=== PATIENT | female | born 1975 | race Caucasian/White ===

== ENCOUNTER → 2016-06-17 | Outpatient (CLI) | payer BC ==
[~2016-06-17] MED LIST: CALNTAB; METO25 PO; METO25TA3 PO; OXYC1TAB63 PO
== END ==
LOC: HPND 10:26
PROVIDERS: ATTEND Obstetrics & Gynecology
DX: O09.522 Supervision of elderly multigravida, second trimester (principal); I47.1 Supraventricular tachycardia; Z3A.18 18 weeks gestation of pregnancy
CPT/HCPCS: 76811

== ENCOUNTER 2016-07-26 05:51 | Observation (INO) | payer BC ==
[~2016-07-26] VITALS: Ht 165.1 cm; Wt 66.7 kg
[~2016-07-26 05:51] MED LIST changes: -CALNTAB; -METO25TA3 PO; -OXYC1TAB63 PO
[2016-07-26 06:30] VITALS: PULSE 86
[2016-07-26 06:35] VITALS: PULSE 99
[2016-07-26 08:54] VITALS: BP 87/53; PULSE 96; RESP 18
[2016-07-26 08:55] VITALS: PULSE 96; O2SAT 100
[2016-07-26 09:00] VITALS: TEMP 98.4
[2016-07-26] MEDS ORDERED: CALNTAB (09:23)
[2016-07-26 09:35] VITALS: BP 93/56; PULSE 91; RESP 18
--- NOTE | 2016-07-26 09:39 | MH ---
cc: ANTONY MORALES M.D. DATE OF ADMISSION: 07/26/2016 ADMITTING DIAGNOSES 1. 23 weeks. 2. Recurrent SVT. 3. Advanced maternal age. 4. Previous . HISTORY OF PRESENT ILLNESS The patient is a 41-year-old white female para 0-1-0-1, LMP of 02/10/16, EDC of 11/16/16. She has a history of SVT which first occurred in her first in 2010. She had [facility] evaluation in 2011 and has been treated with intermittent Metoprolol. She had an episode at 10 weeks in this that required IV Adenosine. She awoke about 2:00 a.m. today with a severely rapid heart rate, went to the ED at [facility] with a tracing of 240 beats a minute. She received three doses of IV Adenosine, had some brief hypotension and then coughed and converted to sinus rhythm. The ED and script writer recommended observation for 23 hours and she was transferred to vt for care. PAST MEDICAL HISTORY/PREVIOUS SURGERY 1. in 2011 for breech. 2. Breast augmentation 2010. 3. T-tubes in childhood. 4. Cryo for SHANNEN I 2000. MEDICATIONS Vitamins and intermittent Metoprolol. ALLERGIES PENICILLIN AND SULFA. TRANSFUSIONS None. SOCIAL HISTORY . She is a sourcing intern. Alcohol, tobacco and drugs are none. FAMILY HISTORY Noncontributory. PHYSICAL EXAMINATION GENERAL: A well-nourished, well-developed, white female. VITAL SIGNS: Vital signs stable. HEART: Sinus rhythm. HEENT: Normal. CHEST: Clear. HEART: Regular rate. ABDOMEN: Abdomen is gravid at 33 weeks. Cervix normal. PELVIC: Deferred. ASSESSMENT As above. PLAN We will have cardiology consultation and discharge home when stable. MD ANGEL LUIS Rivera/IMANI /8:34 AM /9:13 AM
[2016-07-26] MEDS ORDERED: LACTATED RINGER'S 1000 ML INJ 1,000 ML IV ONE (09:45)
--- NOTE | 2016-07-26 10:49 | MB ---
cc: YOHANA STINSON MD DATE OF CONSULTATION: 07/26/2016 REASON FOR CONSULTATION SVT in HISTORY OF PRESENT ILLNESS The patient is a very pleasant 41-year-old woman who sees my partner Dr. Matta for a history of paroxysmal supraventricular tachycardia. The patient is currently 24 weeks and had an episode of very fast supraventricular tachycardia to 240 beats per minute for which she was given several rounds of adenosine in the emergency department which successfully converted her to sinus rhythm. She had been intermittently taking metoprolol as needed but it turns out she was really taking this for symptomatic PVCs as her SVT would come on without warning so a p.r.n. medication was not particularly feasible. Vagal maneuvers had not been particularly helpful for her in the past though she is quite savvy and has done her research on SVT. Currently she has been admitted for observation but maintains sinus rhythm and is completely asymptomatic and hoping to be discharged home. She denies any other symptoms such as chest pain, shortness of breath, lightheadedness, dizziness or syncope. Indeed when she is in her SVT she is still able to function normally despite the very high heart rates. CURRENT MEDICATIONS 1. Vitamins. 2. P.r.n. Metoprolol tartrate. ALLERGIES PENICILLIN, SULFA, CODEINE. PHYSICAL EXAMINATION GENERAL: A very pleasant well-appearing woman in no distress. NECK: No JVD. LUNGS: Clear to auscultation bilaterally. CARDIOVASCULAR: Regular rate and rhythm. No murmurs appreciated. ABDOMEN: Benign. EXTREMITIES: No edema. LABORATORY DATA No labs have been drawn here. EKG initially showed an SVT at [address] changes. Subsequent EKGs have shown sinus rhythm with bigeminal PVCs and then sinus rhythm. The ST changes resolved upon converting to sinus rhythm. IMPRESSION Recurrent SVT. The patient with a history of recurrent SVT continues to have intermittent episodes. I believe it is worthwhile at this point to change her p.r.n. Metoprolol to standing Metoprolol tartrate 25 mg b.i.d. Her pressure is on the low side at baseline so she will have to work particularly hard to stay hydrated at all times. Electrophysiologic options are somewhat limited given that she is but this seems a reasonable place to start. I did discuss the risks of medication at length with the patient versus the risks of not treating, and we both agree that this seems the most prudent course given her markedly fast SVT which required hospitalization. Otherwise, she is asymptomatic and back in a sinus rhythm so she can discharged home and she can followup with her primary bakery manager Dr. Matta next week. Thank you again for the opportunity to participate this patient's care. MD RAMYA De León/IMANI /8:50 AM /10:11 AM
== END 2016-07-26 09:58 | disposition home or self-care (01) ==
LOC: HOBED 05:51 → H2EA 06:37
PROVIDERS: ADMIT Obstetrics & Gynecology; ATTEND Obstetrics & Gynecology
DX: O99.412 Diseases of the circulatory system complicating pregnancy, second trimester (principal); I47.1 Supraventricular tachycardia; O09.522 Supervision of elderly multigravida, second trimester; Z3A.24 24 weeks gestation of pregnancy
CPT/HCPCS: 99285; G0378; J7120

== ENCOUNTER → 2016-08-01 | Outpatient (CLI) | payer BC ==
[~2016-08-01] MED LIST changes: +CALNTAB; +METO25TA3 PO; +OXYC1TAB63 PO
== END ==
LOC: HPND 09:50
PROVIDERS: ATTEND Obstetrics & Gynecology
DX: O10.912 Unspecified pre-existing hypertension complicating pregnancy, second trimester (principal); O09.522 Supervision of elderly multigravida, second trimester; Z3A.00 Weeks of gestation of pregnancy not specified
CPT/HCPCS: 76816; 76817

== ENCOUNTER → 2016-08-05 | Outpatient (CLI) | payer BC | LOC: HPND 08:04 | PROVIDERS: ATTEND Obstetrics & Gynecology | DX: O09.522 Supervision of elderly multigravida, second trimester (principal); O35.1XX0 Maternal care for (suspected) chromosomal abnormality in fetus, not applicable or unspecified; Z3A.25 25 weeks gestation of pregnancy | CPT/HCPCS: 76815 ==

== ENCOUNTER → 2016-08-12 | Outpatient (CLI) | payer BC | LOC: HPND 08:32 | PROVIDERS: ATTEND Obstetrics & Gynecology | DX: O35.1XX0 Maternal care for (suspected) chromosomal abnormality in fetus, not applicable or unspecified (principal); O09.522 Supervision of elderly multigravida, second trimester | CPT/HCPCS: 76815 ==

== ENCOUNTER 2016-09-20 09:33 | Emergency (ER) | payer BC ==
[~2016-09-20] VITALS: Ht 165.1 cm; Wt 75.0 kg
[~2016-09-20 09:33] MED LIST changes: -METO25TA3 PO; -OXYC1TAB63 PO
[2016-09-20 09:38] VITALS: BP 107/71; PULSE 99; RESP 18; TEMP 98; O2SAT 99
[2016-09-20] MEDS ORDERED: METO25TA3 PO (09:50)
--- NOTE | 2016-09-20 10:07 | PD ---
HPI Chief Complaint: Cardiac Complaint Time Seen by Provider: 09:42 Travel History International Travel<30 days: No Contact w/Intl Traveler<30days: No Traveled to known affect area: No History of Present Illness HPI 41-year-old female complains of palpitation on the dizziness and shortness of breath. Patient has history of SVT and frequent PVCs in the past. Patient is on metoprolol 25 mg twice a day for that. Patient has been seen by cull grader Dr. Ponce and [facility]. Patient started having palpitation and shortness of breath and dizziness this morning. Her heart rate was in 180 range this morning. EMS was called. Patient was found to have tachycardia rate about 170s. Patient was transported to ED for evaluation. Upon arrival patient's feeling much better. Patient states that her heart rate slowing down now. Patient is 32 weeks . Patient denies any abdominal pain, vaginal discharge or bleeding. Patient states that the fetus is active. PFSH Past Medical History Cardiovascular Problems: Yes Diminished Hearing: No Tetanus Vaccination: Unknown Influenza Vaccination: No ?: LMP: 02/13/16 Past Surgical History Section: Yes (x1) Other Surgery: Yes (breast augmentation) Social History Alcohol Use: No Tobacco Use: No Substance Use: No Allergies-Medications (Allergen,Severity, Reaction): Coded Allergies: Codeine (Verified Allergy, Severe, 07/26/16) Penicillin (Verified Allergy, Severe, 07/26/16) Sulfa (Verified Allergy, Severe, 07/26/16) Reported Meds & Prescriptions Reported Meds & Active Scripts Active Reported Metoprolol Tartrate 25 Mg Tab 25 Mg PO BID Calna ( Vitamin) 1 Tab Tab Review of Systems General / Constitutional: No: Fever Eyes: No: Visual changes HENT: No: Headaches Cardiovascular: Positive: Tachycardia, No: Chest Pain or Discomfort Respiratory: No: Shortness of Breath Gastrointestinal: No: Abdominal Pain Genitourinary: No: Dysuria Musculoskeletal: No: Pain Skin: No Rash Neurologic: No: Weakness Psychiatric: No: Depression Endocrine: No: Polydipsia Hematologic/Lymphatic: No: Easy Bruising Physical Exam Narrative GENERAL: Well-nourished, well-developed patient. SKIN: Focused skin assessment warm/dry. HEAD: Normocephalic. EYES: No scleral icterus. No injection or drainage. NECK: Supple, trachea midline. No JVD or lymphadenopathy. CARDIOVASCULAR: Irregular rate and rhythm without murmurs, gallops, or rubs. RESPIRATORY: Breath sounds equal bilaterally. No accessory muscle use. GASTROINTESTINAL: Abdomen soft, non-tender, nondistended. MUSCULOSKELETAL: No cyanosis, or edema. BACK: Nontender without obvious deformity. No CVA tenderness. Neurologic exam normal. Data Data Last Documented VS Vital Signs Date Time Temp Pulse Resp B/P Pulse Ox O2 Delivery O2 Flow Rate FiO2 09/20/16 09:38 98.0 99 18 107/71 99 09/20/16 09:35 Room Air Orders Electrocardiogram (09/20/16 ) MDM Medical Decision Making Medical Screen Exam Complete: Yes Emergency Medical Condition: Yes Interpretation(s) 10:05 AM. EKG showed bigeminy. personnel monitor shows frequent PVCs. Differential Diagnosis Differential diagnosis including SVT, frequent PVCs, atrial fibrillation, atrial flutter, PACs. Narrative Course 41-year-old female, 32 weeks , with history SVT and frequent PVCs. Patient's been seen by cull grader and [facility] and on metoprolol 25 mg twice a day. Patient had the breakthrough SVT this morning. Patient now on bigeminy which is normal for her after SVT breakthrough. Patient's feeling comfortable now. Patient wants to go home and follow up with her cull grader. Procedures Procedure Narrative Emergency Department Pelvic ultrasound was performed with patient consent. The curvilinear probe was used in the transverse and sagittal views within the suprapubic region revealing single intrauterine . heart rate was 140. Fetus active Diagnosis Primary Impression: SVT (supraventricular tachycardia) Patient Instructions: General Instructions Additional Instructions: Continue with metoprolol as directed. Follow-up with cull grader. Return if worse. Med/Other Pt SpecificInfo: No Change to Meds Disposition: 01 DISCHARGE HOME Condition: Stable Harley Portillo MD Sep 20, 2016 10:07
--- NOTE | 2016-09-21 10:23 | EKG ---
Date Performed: 09/20/2016 Time Performed: 09:42:59 PTAGE: 41 years EKG: Sinus rhythm WITH FREQUENT VENTRICULAR PREMATURE COMPLEXES IN A BIGEMINAL PATTERN ABNORMAL RHYTHM ECG PREVIOUS TRACING : 03/25/2016 16.00 Compared to previous tracing, there are now frequent PVCs i n a bigeminal pattern. Previous EKG showed normal sinus rhythm. DOCTOR: Belkys Parker Interpretating Date/Time 09/21/2016 10:23:15
== END 2016-09-20 10:33 | disposition home or self-care (01) ==
LOC: NEPC 09:33
DX: O26.93 Pregnancy related conditions, unspecified, third trimester (principal); I47.1 Supraventricular tachycardia; I49.3 Ventricular premature depolarization; Z3A.32 32 weeks gestation of pregnancy; R06.02 Shortness of breath; R42 Dizziness and giddiness
CPT/HCPCS: 93005

== ENCOUNTER → 2016-09-23 | Outpatient (CLI) | payer BC ==
[~2016-09-23] MED LIST changes: -METO25 PO; +METO25TA3 PO; +OXYC1TAB63 PO
== END ==
LOC: HPND 08:44
PROVIDERS: ATTEND Obstetrics & Gynecology
DX: O09.522 Supervision of elderly multigravida, second trimester (principal)
CPT/HCPCS: 76816

== ENCOUNTER 2016-10-11 21:01 | Emergency (ER) | payer BC ==
[~2016-10-11] VITALS: Ht 167.6 cm; Wt 72.7 kg
[~2016-10-11 21:01] MED LIST changes: -OXYC1TAB63 PO
[2016-10-11 21:08] VITALS: BP 90/52; PULSE 228; RESP 26; O2SAT 100
[2016-10-11] MEDS ORDERED: ADENOSINE IV SOLN 3 MG/ML 2 ML VIAL ONE (21:11)
[2016-10-11 21:14] VITALS: BP 111/73; PULSE 97; RESP 26; O2SAT 100
[2016-10-11] MEDS ORDERED: SODIUM CHLOR 0.9% 1000 ML INJ 1,000 ML IV ONE (21:30)
[2016-10-11] MEDS ORDERED: ADENOSINE IV SOLN 3 MG/ML 2 ML VIAL IV PUSH ONE (21:30)
[2016-10-11 21:42] LABS: AUTOMATED NEUTROPHIL # 4.9 TH/MM3 (1.8-7.7); BASOPHIL % 0.2 % (0.0-2.0); EOSINOPHIL % 0.5 % (0.0-4.0); HEMATOCRIT 37.1 % (35.0-46.0); HEMO FLAGS DIFF FINAL; LYMPH % 25.3 % (9.0-44.0); LYMPHOCYTE # 1.8 TH/MM3 (1.0-4.8); MEAN CELL VOLUME 83.2 FL (80.0-100.0); MEAN CORPUSCULAR HGB CONC 33.7 % (32.0-36.0); MONO % 5.1 % (0.0-8.0); NEUT % 68.9 % (16.0-70.0); PLATELET COUNT 287 TH/MM3 (150-450); RED BLOOD COUNT 4.46 MIL/MM3 (4.00-5.30); RED CELL DISTRIBUTION WIDTH 18.5 % (11.6-17.2); WHITE BLOOD COUNT 7.1 TH/MM3 (4.0-11.0)
[2016-10-11 21:55] VITALS: BP 91/58; PULSE 91; RESP 20; O2SAT 99
[2016-10-11 21:55] LABS: INTERNATIONAL NORMALIZED RATIO 0.9 RATIO; PROTHROMBIN TIME - PATIENT 9.9 SEC (9.8-11.6)
--- NOTE | 2016-10-11 21:56 | PD ---
HPI Chief Complaint: Chest Pain Time Seen by Provider: 21:17 Travel History International Travel<30 days: No Contact w/Intl Traveler<30days: No Traveled to known affect area: No History of Present Illness HPI 41-year-old female presents to the emergency department by private transportation for complaint of increased heart rate with history of SVT and presently 35 weeks . Patient is 2 para 1 AB 0. Patient states at 8:20 PM while at home at rest started noticing palpitations. Patient states she has history of SVT for which she is prescribed metoprolol 25 mg twice daily. Patient is been taking her medication as prescribed. Patient denies thyroid disorder. Patient's had no recent febrile illness. Patient states that she attempted vagal maneuvers at home without relief. Patient presents now with rapid heart rate. Patient states she has received Adenocard in the past during her . Patient under the care of water rights specialist Dr. Zuluaga. [facility] Past Medical History Narrative Medical SVT; Ab0; , breast augmentation; no tobacco use; nursing notes reviewed Cardiovascular Problems: Yes (svt) Diminished Hearing: No Tetanus Vaccination: < 5 Years ?: Past Surgical History Section: Yes (x1) Other Surgery: Yes (breast augmentation) Social History Alcohol Use: No Tobacco Use: No Substance Use: No Allergies-Medications (Allergen,Severity, Reaction): Coded Allergies: Codeine (Verified Allergy, Severe, 10/11/16) Penicillin (Verified Allergy, Severe, 10/11/16) Sulfa (Verified Allergy, Severe, 10/11/16) Reported Meds & Prescriptions Reported Meds & Active Scripts Active Reported Metoprolol Tartrate 25 Mg Tab 25 Mg PO BID Calna ( Vitamin) 1 Tab Tab Review of Systems Except as stated in HPI: all other systems reviewed are Neg General / Constitutional: No: Fever, Chills HENT: No: Congestion Cardiovascular: Positive: Palpitations, Tachycardia, No: Chest Pain or Discomfort Respiratory: No: Cough, Shortness of Breath Gastrointestinal: No: Nausea, Abdominal Pain Genitourinary: No: Pelvic Pain Musculoskeletal: No: Myalgias, Arthralgias Skin: No Rash Neurologic: No: Weakness, Dizziness, Syncope Psychiatric: No: Anxiety Hematologic/Lymphatic: No: Lymph Node Enlargement Physical Exam Narrative GENERAL: Well-developed well-nourished female in no acute distress SKIN: Warm and dry. HEAD: Normocephalic. EYES: No scleral icterus. No injection or drainage. NECK: Supple, trachea midline. No JVD or lymphadenopathy. CARDIOVASCULAR: Increased Regular rate and rhythm without murmurs, gallops, or rubs. RESPIRATORY: Breath sounds equal bilaterally. No accessory muscle use. GASTROINTESTINAL: Abdomen soft, non-tender, fundal height 1 finger breath below the diaphragm nondistended. MUSCULOSKELETAL: No cyanosis, or edema. BACK: Nontender without obvious deformity. No CVA tenderness. Data Data Last Documented VS Vital Signs Date Time Temp Pulse Resp B/P Pulse Ox O2 Delivery O2 Flow Rate FiO2 10/11/16 23:35 112 20 102/63 99 Room Air 10/11/16 22:00 2 Orders Adenosine Inj (Adenocard Inj) (10/11/16 21:11) Electrocardiogram (10/11/16 21:17) Basic Metabolic Panel (Bmp) (10/11/16 21:17) Complete Blood Count With Diff (10/11/16 21:17) Magnesium (Mg) (10/11/16 21:17) Prothrombin Time / Inr (Pt) (10/11/16 21:17) Act Partial Throm Time (Ptt) (10/11/16 21:17) Troponin I (10/11/16 21:17) Ecg Monitoring (10/11/16 21:17) Iv Access Insert/Monitor (10/11/16 21:17) Oximetry (10/11/16 21:17) Oxygen Administration (10/11/16 21:17) Thyroid Stimulating Hormone (10/11/16 21:17) Adenosine Inj (Adenocard Inj) (10/11/16 21:30) Sodium Chlor 0.9% 1000 Ml Inj (Ns 1000 M (10/11/16 21:30) Urinalysis - C+S If Indicated (10/11/16 22:15) Labs Laboratory Tests Test 10/11/16 10/11/16 21:20 22:34 White Blood Count 7.1 TH/MM3 Red Blood Count 4.46 MIL/MM3 Hemoglobin 12.5 GM/DL Hematocrit 37.1 % Mean Corpuscular Volume 83.2 FL Mean Corpuscular Hemoglobin 28.0 PG Mean Corpuscular Hemoglobin 33.7 % Concent Red Cell Distribution Width 18.5 % Platelet Count 287 TH/MM3 Mean Platelet Volume 7.4 FL Neutrophils (%) (Auto) 68.9 % Lymphocytes (%) (Auto) 25.3 % Monocytes (%) (Auto) 5.1 % Eosinophils (%) (Auto) 0.5 % Basophils (%) (Auto) 0.2 % Neutrophils # (Auto) 4.9 TH/MM3 Lymphocytes # (Auto) 1.8 TH/MM3 Monocytes # (Auto) 0.4 TH/MM3 Eosinophils # (Auto) 0.0 TH/MM3 Basophils # (Auto) 0.0 TH/MM3 CBC Comment DIFF FINAL Differential Comment Prothrombin Time 9.9 SEC Prothromb Time International 0.9 RATIO Ratio Activated Partial 26.0 SEC Thromboplast Time Sodium Level 137 MEQ/L Potassium Level 3.5 MEQ/L Chloride Level 102 MEQ/L Carbon Dioxide Level 23.8 MEQ/L Anion Gap 11 MEQ/L Blood Urea Nitrogen 9 MG/DL Creatinine 0.66 MG/DL Estimat Glomerular Filtration 100 ML/MIN Rate Random Glucose 98 MG/DL Calcium Level 9.2 MG/DL Magnesium Level 2.0 MG/DL Troponin I LESS THAN 0.02 NG/ML Thyroid Stimulating Hormone 3.610 uIU/ML 3rd Gen Urine Color LIGHT-YELLOW Urine Turbidity CLEAR Urine pH 6.0 Urine Specific Freedom 1.005 Urine Protein NEG mg/dL Urine Glucose (UA) NEG mg/dL Urine Ketones 10 mg/dL Urine Occult Blood NEG Urine Nitrite NEG Urine Bilirubin NEG Urine Urobilinogen LESS THAN 2.0 MG/DL Urine Leukocyte Esterase NEG Urine WBC LESS THAN 1 /hpf Urine Squamous Epithelial <1 /hpf Cells Microscopic Urinalysis Comment CULT NOT INDICATED MDM Medical Decision Making Medical Screen Exam Complete: Yes Emergency Medical Condition: Yes Medical Record Reviewed: Yes Interpretation(s) EKG normal sinus rhythm rate [address] elevation or injury present pattern nonspecific ST depression inferolaterally no ectopy (after Adenocard 6 mg IV push) CBC & BMP Diagram 10/11/16 21:20 tsh: 3.610, wnl ua: wnl troponin I: less than 0.02, not elevated Differential Diagnosis SVT, electrolyte disturbance, thyroid dysfunction, dehydration, medication noncompliance, third trimester complication Narrative Course Patient was immediately placed on cardiac tech noted to be an SVT of 220 blood pressure 90/68; GCS 15; vagal maneuver was attempted without success; patient tolerating rate and blood pressure while Adenocard 6 mg IV push administered and patient placed supine along with normal saline bolus; patient converted to sinus rhythm with brief quadrigeminy and bigeminy which resolved spontaneously. Specimens collected and sent for resulting; bedside ED heart tones 142. Patient's case discussed with on-call OB ED; plan to send OB nurse to ED to monitor Patient resting comfortably aware of plan for follow-up of electrolytes monitoring with OB nurse and will discuss patient's case with her BILLER OB ED nurse did discuss case with patient's water rights specialist Dr. Zuluaga who will see patient as an outpatient the patient is otherwise stable through the emergency department is aware of patient's history of SVT Lab values found to be in normal range urinalysis unremarkable TSH within normal limits patient is remaining stable and comfortable in the emergency department and any initial ectopy has resolved at this time patient appears stable for outpatient management and voicing no concerns or complaints. Recurrent bigeminy noted --patient asymptomatic; her hr associate is Dr Ponce Physician Communication Physician Communication discussed with Dr Martinez --- OB ED MD --will send OB nurse--good non stress -- discussed w Dr Zuluaga --will see as outpatient knows of patient's h/o svt; call placed to Dr Ponce ---discussed with Dr Miranda --keep at metoprolol 25 TID and follow up with Dr Ponce Diagnosis Primary Impression: SVT (supraventricular tachycardia) Additional Impression: Qualified Code: Z3A.35 - 35 weeks gestation of Referrals: David Zuluaga MD 2 days Patient Instructions: General Instructions Additional Instructions: Continue current outpatient medications as prescribed Follow-up with your primary BILLER call office on Thursday Return to the emergency department for any concerns or change in condition Increase fluid hydration Med/Other Pt SpecificInfo: No Change to Meds Disposition: 01 DISCHARGE HOME Condition: Stable Latonya Hernandez MD Oct 11, 2016 21:56
[2016-10-11 22:00] VITALS: BP 97/52; PULSE 94; RESP 17; O2SAT 99
[2016-10-11 22:11] LABS: ANION GAP 11 MEQ/L (5-15); BICARBONATE 23.8 MEQ/L (21.0-32.0); BLOOD UREA NITROGEN 9 MG/DL (7-18); CHLORIDE 102 MEQ/L (98-107); GLOMERULAR FILTRATION RATE 100 ML/MIN (>89); POTASSIUM 3.5 MEQ/L (3.5-5.1); SODIUM (NA) 137 MEQ/L (136-145)
[2016-10-11 23:20] LABS: BLOOD, URINE NEG (NEG); GLUCOSE,URINE NEG (NEG); KETONE, URINE 10 mg/dL (NEG); NITRITE,URINE NEG (NEG); SQUAMOUS EPITHELIAL CELL URINE <1 /hpf (0-5); URINE COLOR LIGHT-YELLOW (YELLW/STRAW)
[2016-10-11 23:26] LABS: COMMENT (UR) CULT NOT INDICATED; CULTURE IF INDICATED CULT NOT INDICATED
[2016-10-11 23:35] VITALS: BP 102/63; PULSE 112; RESP 20; O2SAT 99
--- NOTE | 2016-10-12 22:35 | EKG ---
Date Performed: 10/11/2016 Time Performed: 21:14:11 PTAGE: 41 years EKG: Sinus rhythm WITH MARKED SINUS ARRHYTHMIA WITH SHORT KS INTERVAL MODERATE ST DEPRESSION ABNORMAL ECG Compared to the PREVIOUS TRACING PVCs no longer present DOCTOR: Cherelle Miranda Interpretating Date/Time 10/12/2016 22:34:40
== END 2016-10-12 00:25 | disposition home or self-care (01) ==
LOC: NEPC 21:01
DX: O26.93 Pregnancy related conditions, unspecified, third trimester (principal); I47.1 Supraventricular tachycardia; Z3A.35 35 weeks gestation of pregnancy; R94.31 Abnormal electrocardiogram [ECG] [EKG]
CPT/HCPCS: 80048; 81001; 83735; 84443; 84484; 85025; 85610; 85730; 93005; 96361; 96374; 99285; J0153; J7030

== ENCOUNTER 2016-11-21 04:43 | Inpatient (IN) | payer BC ==
[~2016-11-21] VITALS: Ht 165.1 cm; Wt 78.0 kg
[2016-11-21] VITALS (26 sets, daily range): BP systolic 96–139; BP diastolic 65–89; PULSE 55–91; RESP 18–20; TEMP 98–98.5
[2016-11-21] MEDS ORDERED: fentaNYL 2MCG-BUPIV 0.125% INJ 100 ML ONE (05:39)
[2016-11-21 05:40] LABS: AUTOMATED NEUTROPHIL # 3.3 TH/MM3 (1.8-7.7); BASOPHIL % 0.7 % (0.0-2.0); EOSINOPHIL # 0.1 TH/MM3 (0-0.4); HEMATOCRIT 37.4 % (35.0-46.0); HEMO FLAGS DIFF FINAL; LYMPH % 31.9 % (9.0-44.0); LYMPHOCYTE # 1.7 TH/MM3 (1.0-4.8); MEAN CELL VOLUME 83.6 FL (80.0-100.0); MEAN CORPUSCULAR HEMOGLOBIN 28.7 PG (27.0-34.0); MEAN CORPUSCULAR HGB CONC 34.3 % (32.0-36.0); MONO % 6.1 % (0.0-8.0); NEUT % 60.3 % (16.0-70.0); PLATELET COUNT 184 TH/MM3 (150-450); RED BLOOD COUNT 4.48 MIL/MM3 (4.00-5.30); RED CELL DISTRIBUTION WIDTH 19.2 % (11.6-17.2); WHITE BLOOD COUNT 5.5 TH/MM3 (4.0-11.0)
[2016-11-21] MEDS ORDERED: ePHEDrine/NS 25 MG/5 ML SYR ONE (05:40)
[2016-11-21] MEDS ORDERED: LIDOCAINE HCL 1% 50 ML VIAL I-DERMAL PRN (06:15)
[2016-11-21] MEDS ORDERED: CITRIC ACID-SODIUM CITRATE LIQ 30 ML UDC PO SCH (06:15)
[2016-11-21] MEDS ORDERED: ONDANSETRON HCL 4 MG/2 ML VIAL IV PRN (06:15)
[2016-11-21] MEDS ORDERED: LIDOCAINE HCL 1% 50 ML VIAL INFIL PRN (06:15)
[2016-11-21] MEDS ORDERED: OXYTOCIN 30 UNITS 500ML PREMIX IV ONE (06:15)
[2016-11-21] MEDS ORDERED: MINERAL OIL 10 ML VIAL TOPICAL PRN (06:15)
[2016-11-21] MEDS ORDERED: LACTATED RINGER'S 1000 ML BOLUS IV PRN ×2 (06:15)
[2016-11-21] MEDS ORDERED: LACTATED RINGER'S 1000 ML IV SCH ×2 (06:15)
[2016-11-21] MEDS ORDERED: NS 1000 ML IV PRN ×2 (06:15)
[2016-11-21] MEDS ORDERED: NS 500 ML BOLUS IV PRN ×2 (06:15)
[2016-11-21] MEDS ORDERED: DO NOT ADMINISTER ANTICOAGULANTS PRN (06:30)
[2016-11-21] MEDS ORDERED: NO SYSTEM NARCOTICS PRN (06:30)
[2016-11-21] MEDS ORDERED: ePHEDrine/NS 25 MG/5 ML SYR IV PRN (06:30)
[2016-11-21] MEDS ORDERED: fentaNYL 2MCG-BUPIV 0.125% 100 ML EPIDURAL SCH (06:30)
[2016-11-21] MEDS: METOPROLOL TARTRATE 25 MG TAB PO SCH ×3 (07:41→22:51)
--- NOTE | 2016-11-21 07:42 | MH ---
cc: ANTONY MORALES M.D. DATE OF ADMISSION 11/21/2016 TIME OF EXAMINATION 06:45 a.m. ADMISSION DIAGNOSIS 1. at 40-41 weeks, active labor. 2. Advanced maternal terminal age 41 3. Previous for breech. 4. SVT controlled HISTORY OF PRESENT ILLNESS This is a 41-year-old white female para 0-1-0-1, LMP of 02/10/2016, EDC of 11/16/2016 has had a course complicated by SVT requiring multiple ED visits, IV adenison and currently controlled with Metoprolol. She developed labor awakening at 3:00 a.m. with contractions and again to leak fluid shortly after that. She is now admitted for attempt. PAST MEDICAL HISTORY She had a in 2011 for breech presentation with p.r.n. labor. MEDICATIONS 1. Metoprolol 2. Vitamins ALLERGIES PENICILLIN AND SULFA TRANSFUSIONS None PAST SURGERIES 1. Breast augmentation 2010 2. PE tubes in childhood 3. Cryosurgery of HER cervix 2000 4. 2011 SERIOUS MEDICAL ILLNESS SVT SOCIAL HISTORY She is . She is a local flatbed driver. Alcohol, tobacco and drugs are none. FAMILY HISTORY Noncontributory PHYSICAL EXAM This is a well-nourished well-developed white female. VITAL SIGNS: Stable. HEENT: Exam is normal. CHEST: Clear. HEART: Regular rate. BREASTS: Symmetrical. ABDOMEN: Gravid. EFW is 3700 grams. Cervix is 4-5 complete, AROM for wood vertex. Her GBS was negative. PLAN She received epidural. We will monitor progress in labor. Should she have failure to progress with stress, we will proceed with section. MD ANGEL LUIS Rivera/DAVID /7:13 AM /7:23 AM ESSIE
[2016-11-21] MEDS ORDERED: METOPROLOL TARTRATE 25 MG TAB PO SCH (09:00)
[2016-11-21] MEDS ORDERED: oxyCODONE/ACETAMINOPHEN 5 MG/325 MG TAB PO PRN (11:15)
[2016-11-21] MEDS ORDERED: ALUMINUM/MAGNESIUM/SIMETH 30 ML CUP PO PRN (11:15)
[2016-11-21] MEDS ORDERED: ONDANSETRON ODT 4 MG TAB PO PRN (11:15)
[2016-11-21] MEDS ORDERED: WITCH HAZEL 50%/GLYCERIN 12.5% 40 PAD JAR TOPICAL PRN (11:15)
[2016-11-21] MEDS ORDERED: BENZOCAINE 20% TOPICAL SPRAY 60 ML CAN TOPICAL PRN (11:15)
[2016-11-21] MEDS ORDERED: ZOLPIDEM TARTRATE 5 MG TAB PO PRN (11:15)
[2016-11-21] MEDS ORDERED: SODIUM CHLORIDE 0.9% FLUSH 10 ML FLUSH IV FLUSH PRN (11:15)
[2016-11-21] MEDS: IBUPROFEN 600 MG TAB PO PRN ×2 (12:17→18:14)
[2016-11-21] MEDS ORDERED: DIPHTH/TETANUS/ACEL PERTUSSIS (BOOSTER) 0.5 ML VIAL/PFS IM ONE (16:00)
[2016-11-21] MEDS ORDERED: MEASLES, MUMPS, RUBELLA VACCINE 0.5 ML VIAL SQ ONE (16:00)
[2016-11-21] MEDS: oxyCODONE/ACETAMINOPHEN 5 MG/325 MG TAB PO PRN (19:43)
[2016-11-21] MEDS ORDERED: SODIUM CHLORIDE 0.9% FLUSH 10 ML FLUSH IV FLUSH SCH (21:00)
[2016-11-22] MEDS: oxyCODONE/ACETAMINOPHEN 5 MG/325 MG TAB PO PRN (00:02)
[2016-11-22] MEDS: IBUPROFEN 600 MG TAB PO PRN ×4 (00:03→23:27)
[2016-11-22 06:55] LABS: AUTOMATED NEUTROPHIL # 5.2 TH/MM3 (1.8-7.7); BASOPHIL # 0.1 TH/MM3 (0-0.2); BASOPHIL % 0.7 % (0.0-2.0); EOSINOPHIL # 0.1 TH/MM3 (0-0.4); HEMATOCRIT 23.5 % (35.0-46.0); HEMO FLAGS DIFF FINAL; LYMPH % 25.7 % (9.0-44.0); MEAN CELL VOLUME 85.3 FL (80.0-100.0); MEAN CORPUSCULAR HEMOGLOBIN 27.9 PG (27.0-34.0); MEAN CORPUSCULAR HGB CONC 32.7 % (32.0-36.0); MONO % 4.7 % (0.0-8.0); NEUT % 67.9 % (16.0-70.0); PLATELET COUNT 135 TH/MM3 (150-450); RED BLOOD COUNT 2.76 MIL/MM3 (4.00-5.30); RED CELL DISTRIBUTION WIDTH 19.1 % (11.6-17.2); WHITE BLOOD COUNT 7.6 TH/MM3 (4.0-11.0)
[2016-11-22] MEDS: METOPROLOL TARTRATE 25 MG TAB PO SCH ×3 (07:48→23:27)
[2016-11-22 07:50] VITALS: BP 96/58; PULSE 16; PULSE 71; RESP 16; TEMP 98.3
[2016-11-22 13:27] VITALS: BP 106/73; PULSE 84
[2016-11-22] MEDS: ACETAMINOPHEN 325 MG TAB PO PRN ×2 (17:07→23:26)
[2016-11-22 20:00] VITALS: BP 109/79; PULSE 86; RESP 18; TEMP 98.4
[2016-11-22] MEDS: DOCUSATE SODIUM 50 MG/SENNA 8.6 MG TAB PO PRN (23:27)
[2016-11-23 06:18] LABS: MEAN CELL VOLUME 84.7 FL (80.0-100.0); MEAN CORPUSCULAR HEMOGLOBIN 28.4 PG (27.0-34.0); MEAN CORPUSCULAR HGB CONC 33.5 % (32.0-36.0); PLATELET COUNT 168 TH/MM3 (150-450); RED BLOOD COUNT 2.83 MIL/MM3 (4.00-5.30); RED CELL DISTRIBUTION WIDTH 19.2 % (11.6-17.2); REVIEW FLAG FINAL; WHITE BLOOD COUNT 7.8 TH/MM3 (4.0-11.0)
[2016-11-23] MEDS: ACETAMINOPHEN 325 MG TAB PO PRN ×2 (07:02→11:59)
[2016-11-23] MEDS: IBUPROFEN 600 MG TAB PO PRN ×2 (07:02→11:58)
[2016-11-23] MEDS: METOPROLOL TARTRATE 25 MG TAB PO SCH (07:02)
[2016-11-23 07:57] VITALS: BP 109/72; PULSE 75; RESP 18; TEMP 98.4
[2016-11-23] MEDS ORDERED: OXYC1TAB63 PO (11:25)
--- NOTE | 2016-11-23 11:26 | HHI.DCPOC ---
Discharge Care Plan Report Symptoms to Your Doctor -Temperature above 100.5 degrees -Redness, of incision or excessive or foul smelling drainage -Unusual pain or calf pain -Increased vaginal bleeding -Painful or difficulty urinating -Feelings of extreme sadness or anxiety after 2 weeks Goals to Promote Your Health * To prevent worsening of your condition and complications * To maintain your health at the optimal level Directions to Meet Your Goals Take your medications as prescribed Follow your dietary instruction Follow activity as directed Ensure plenty of rest for recovery Drink fluids for hydration Keep your appointments as scheduled Take your immunizations and boosters as scheduled If your symptoms worsen call your PCP, if no PCP go to Urgent Care Center or Emergency Room Smoking is Dangerous to Your Health. Avoid second hand smoke Call the 24-hour crisis hotline for domestic abuse at David Zuluaga MD Nov 23, 2016 11:26
[2016-11-23] MEDS: DOCUSATE SODIUM 50 MG/SENNA 8.6 MG TAB PO PRN (11:58)
--- NOTE | 2016-11-26 09:28 | MD ---
cc: ANTONY MORALES ADMISSION DATE: 11/21/2016 DISCHARGE DATE: 11/23/2016 ADMITTING DIAGNOSIS 1. at 40/41 weeks. 2. Active labor. 3. Advanced maternal age of 41. 4. Previous for breech. 5. SVT. DISCHARGE DIAGNOSIS 1. at 40/41 weeks. 2. Active labor. 3. Advanced maternal age of 41. 4. Previous for breech. 5. SVT. 6. Delivered. HISTORY OF PRESENT ILLNESS The patient is a 41-year-old white female, para 0-1-0-1, with an LMP of 02/10/2016, EDC of 11/16/2016. Her course was benign. Her past medical history was pertinent for first delivery by , breech at 36 weeks, history of SVT controlled with metoprolol and intermittent IV adenosine during the . She required iron infusion for anemia. HOSPITAL COURSE She desired and was admitted in active labor on the morning of 11/21/2016, received epidural anesthesia and progressed to a spontaneous vaginal every over a midline episiotomy, a viable vigorous female, Apgars 9 and 9, weight 8 pounds 12 ounces. she did well. She was discharged home in excellent condition on 11/23/2016. DISCHARGE INSTRUCTIONS She was advised NPV, light activity, no driving for one day. Return to see me in 6 weeks. She is to call for abnormal pain, bleeding, temperature, signs of infection or depression. She is to take her vitamins at home. She will take her metoprolol 25 mg p.o. b.i.d. and return to the ER YA for signs of SVT. She will call me if any abnormal symptoms. She was given a script for Percocet 5, one p.o. q.4h. p.r.n. pain, #30. MD ANGEL LUIS Rivera/BT /11:44 AM /9:25 AM
== END 2016-11-23 13:15 | disposition home or self-care (01) | DRG 765 ==
LOC: HOBED 04:43 → H2EB 04:59 → H1EA 15:22 → EDSTATUS 17:30 → UNDODISIN 11-23 13:15
PROVIDERS: ADMIT Obstetrics & Gynecology; ATTEND Obstetrics & Gynecology
PROC: 10D00Z1 Extraction of Products of Conception, Low, Open Approach (ICD-10-PCS; principal; 2016-11-21)
DX: O34.211 Maternal care for low transverse scar from previous cesarean delivery (principal); O99.42 Diseases of the circulatory system complicating childbirth; I47.1 Supraventricular tachycardia; Z37.0 Single live birth; O66.41 Failed attempted vaginal birth after previous cesarean delivery; Z3A.41 41 weeks gestation of pregnancy
CPT/HCPCS: 59025; 84112; 85025; 85027; 86703; 86850; 86900; 86901; 99285; J3010; J7120

== ENCOUNTER 2017-03-20 09:54 | Day surgery (SDC) | payer BC ==
[~2017-03-20] VITALS: Ht 165.1 cm; Wt 63.5 kg
[~2017-03-20 09:54] MED LIST changes: +OXYC1TAB63 PO
[2017-03-20] MEDS ORDERED: IODIXANOL 320 MG/ML 50 ML VIAL (for EPS) OTHER ONE (09:55)
[2017-03-20 10:15] VITALS: BP 123/76; PULSE 104; RESP 16; O2SAT 100
[2017-03-20] MEDS ORDERED: CHLORHEXIDINE GLUCONATE 2 % 1 PACK (2 CLOTHS) TOPICAL SCH (10:45)
[2017-03-20 10:58] LABS: AUTOMATED NEUTROPHIL # 1.9 TH/MM3 (1.8-7.7); BASOPHIL % 0.8 % (0.0-2.0); EOSINOPHIL % 0.4 % (0.0-4.0); HEMATOCRIT 38.3 % (35.0-46.0); HEMO FLAGS DIFF FINAL; LYMPH % 37.6 % (9.0-44.0); LYMPHOCYTE # 1.3 TH/MM3 (1.0-4.8); MEAN CELL VOLUME 82.2 FL (80.0-100.0); MEAN CORPUSCULAR HEMOGLOBIN 27.7 PG (27.0-34.0); MEAN CORPUSCULAR HGB CONC 33.7 % (32.0-36.0); MONO % 8.6 % (0.0-8.0); NEUT % 52.6 % (16.0-70.0); PLATELET COUNT 208 TH/MM3 (150-450); RED BLOOD COUNT 4.65 MIL/MM3 (4.00-5.30); RED CELL DISTRIBUTION WIDTH 14.6 % (11.6-17.2); WHITE BLOOD COUNT 3.5 TH/MM3 (4.0-11.0)
[2017-03-20] MEDS ORDERED: LACTATED RINGER'S 1000 ML IV PRN (11:00)
[2017-03-20] MEDS ORDERED: SODIUM CHLORID 0.9% 500 ML IV PRN (11:00)
[2017-03-20] MEDS ORDERED: VANCOMYCIN 1000 MG/NS 250 ML IV SCH ×2 (11:00)
[2017-03-20] MEDS ORDERED: POVIDONE IODINE 5% (ANTISEPSIS KIT) 4 APPLICATIONS EACH NARE SCH (11:00)
[2017-03-20] MEDS ORDERED: NO Heparin, Lovenox, Coumadin at least 12 hours prior to procedure. PRN (11:00)
[2017-03-20] MEDS ORDERED: NS 1000 ML IV SCH (11:00)
[2017-03-20] MEDS ORDERED: Hold AM Insulin & AM Hypoglycemic medications in diabetic patients PRN (11:00)
[2017-03-20] MEDS ORDERED: MUPIROCIN 2% OINT 1 APPLIC/GM SYR NASAL SCH (11:00)
[2017-03-20] MEDS ORDERED: METOPROLOL TARTRATE 25 MG TAB PO PRN (11:00)
[2017-03-20] MEDS ORDERED: INSULIN HUMAN REGULAR 1,000 UNITS/10 ML VIAL SQ PRN (11:00)
[2017-03-20 11:05] LABS: APTT (PATIENT) 27.1 SEC (24.3-30.1); PROTHROMBIN TIME - PATIENT 10.9 SEC (9.8-11.6)
[2017-03-20 11:21] LABS: ANION GAP 8 MEQ/L (5-15); BICARBONATE 25.3 MEQ/L (21.0-32.0); BLOOD UREA NITROGEN 16 MG/DL (7-18); CHLORIDE 107 MEQ/L (98-107); GLOMERULAR FILTRATION RATE 69 ML/MIN (>89); POTASSIUM 3.5 MEQ/L (3.5-5.1); SODIUM (NA) 140 MEQ/L (136-145)
[2017-03-20] MEDS ORDERED: ASPI81CH PO (11:36)
[2017-03-20] MEDS ORDERED: VERA120C3 PO (11:36)
[2017-03-20 15:28] LABS: BETA HCG QUANT LESS THAN 1 MIU/ML (0-5)
[2017-03-20] MEDS ORDERED: HEPARIN-NS/PF INJ 1,000 ML ONE (16:45)
[2017-03-20] MEDS ORDERED: ISOPROTERENOL HCL 1 MG/5 ML AMP ONE (16:51)
[2017-03-20] MEDS ORDERED: SODIUM CHLOR 0.9% 250 ML INJ 250 ML ONE (16:51)
[2017-03-20] MEDS ORDERED: PROPOFOL 200 MG/20 ML AMP ONE ×2 (17:26→19:33)
[2017-03-20] MEDS ORDERED: PROTAMINE SULFATE 50 MG/5 ML VIAL ONE (19:18)
[2017-03-20] MEDS ORDERED: SODIUM CHLOR 0.9% 1000 ML INJ 500 ML IV SCH (19:38)
[2017-03-20] MEDS ORDERED: ASPIRIN 325 MG TAB PO SCH (19:45)
--- NOTE | 2017-03-20 19:45 | CATHPROC ---
[facility] HIS Report Study Information Study Number Admission Scheduled Start Study Start [id number] Mar 20 2017 9:54AM 03/20/2017 Mar 20 2017 4:18PM [place] [facility] Electrophysiology Study Admit Source Facility Department Other [facility] - Long Term Acute Care Registered Nurse Physician and Clinical Staff Initial Cherelle Maynard Steam Cleaning Machine Operator Loida Fernandez,EXTERMINATOR HELPER TECH2 Steam Cleaning Machine Operator Raheel Swanson,RT(R) Other Anesthesia, LABORER DRIVER Recorder Luz Moreland,CISCO Scrub Raheel Swanson,RT(R) Scrub Loida Fernandez,EXTERMINATOR HELPER TECH2 Procedures Performed Procedure Location (Site) Vessel Name Ablation Procedure RF Ablation LV Ventricle Equipment Time [employer] Piping Designer Description Size Mfg Part Number Used/Scraped [id number] 16:27 ARGON/MAXXIM DRAPE, BRACHIAL REINFORCED * Used *[id number] BIOSENSE KAUFFMAN CATHETER, DEFLECTABLE, 1MM, [id number] 16:25 FR 6 Used INC. D TYPE HEX *[id number] BIOSENSE KAUFFMAN CATHETER, DEFLECTABLE, 1MM, [id number] 16:25 FR 7 Used INC. D TYPE OCTA *[id number] [employer]/ EP 18:22 CATHETER, FR7 BLAZER II FR7 [id number] *[id number] Used PACER 16:21 CONMED LEADWIRE, DEFIBRILLATION PAD [id number] Used [id number] 19:21 DAIG/[facility] ANGIOSEAL FR8 FR 8 Used *[id number] 16:21 [employer] PACK, CCL CUSTOM * Used *[id number] 16:21 [employer] PACER KAHN, LIMB * 2530 *[id number] Used [id number] 16:28 [employer] MEDICAL SHEATH, FR4.5 PRELUDE 11CM FR 4.5 Used 035ACT PROBE COVER, STERILE [id number] 16:24 [employer] MEDICAL * Used ULTRASOUND W/ GEL *[id number] 16:58 NAMIC TUBING, HIGH PRESSURE 48" 48" Used *[id number] 16:21 [employer] MEDICAL BLANKET,WARM AIR CCL * Used *[id number] CATHETER, DECAPOLAR CSL 059572 16:25 [facility] MEDICAL FR 6 Used RESPONSE *[id number] 935491 16:25 [facility] MED[employer] CATHETER, JSN, QUAD FR 5 Used *[id number] 16:21 [facility] MED[employer] ELECTRODE KIT, MEI X SURFACE * [id number] Used 18:16 [facility] MED[employer] SHEATH, EPS, FR7 FAST CATH FR 7 [id number] Used 16:28 [facility] MED[employer] SHEATH, EPS, FR7 FAST CATH FR 7 [id number] Used 16:28 [facility] [employer] MED[employer] SHEATH, EPS, FR7 FAST CATH FR [address] [id number] Used 16:28 [facility] [employer] MEDICAL SHEATH, EPS, FR7 FAST CATH FR 7 [id number] Used [id number] 16:28 [facility] MEDICAL SHEATH, EPS, FR8 FAST CATH FR 8 Used *[id number] [facility] PAD, ELECTROSURGICAL 16:21 * [id number] *[id number] Used SURGICAL GROUNDING (BLUE) History: Allergies Allergy Reaction codeine Penicillin Sulfa Sulfa (Sulfonamide Antibiotics) penicillin G Labs Hgb (g/dl) Hct (%) RBC (MIL/MM3) WBC (l/cumm) Platelets (thousands) 11.60-17.00 35.00-51.00 4.00-5.90 4.00-11.00 150.00-450.00 12.0 38 4.6 3.5 208 Glucose (mg/dl) BUN (mg/dl) Creatinine (mg/dl) BUN:Creatinine (1:x) 74.00-106.00 7.00-18.00 0.50-1.30 10.00-20.00 98 16 0.9 17.8 Na (meq/l) K (meq/l) 136.00-145.00 3.50-5.10 140 3.5 INR (PTT:PT) 0.90-1.10 1 Medication Medication Total Dose (Bolus/Oral) Medication Total Dosage/Unit 1% XYLOCAINE 40 mL HEPARIN 8000 units PROTAMINE 50 mg Medications (Bolus/Oral) Medication Time Given Dosage/Unit Administered By Reason 1% XYLOCAINE 03/20/2017 5:08:07 PM 20 mL Quadrat [place] 20 mL 1% XYLOCAINE given in lab by Cherelle Miranda in Right neck via Subcutaneous. 1% XYLOCAINE 03/20/2017 5:22:00 PM 20 mL Quadrat, [place] 20 mL 1% XYLOCAINE given in lab by Cherelle Miranda in Right Groin via Subcutaneous. HEPARIN 03/20/2017 6:22:08 PM 5000 units Anesthesia, LABORER DRIVER As per physicians v erbal order 5000 units HEPARIN given in lab by Anesthesia, LABORER DRIVER via Peripheral IV. Ordered by Cherelle Miranda. Re ason: As per physicians verbal order. HEPARIN 03/20/2017 6:31:22 PM 2000 units Anesthesia, LABORER DRIVER As per physicians v erbal order 2000 units HEPARIN given in lab by Anesthesia, LABORER DRIVER via Peripheral IV. Ordered by Cherelle Miranda. Re ason: As per physicians verbal order. HEPARIN 03/20/2017 6:51:05 PM 1000 units Anesthesia, LABORER DRIVER As per physicians v erbal order 1000 units HEPARIN given in lab by Anesthesia, LABORER DRIVER via Peripheral IV. Ordered by Cherelle Miranda. Re ason: As per physicians verbal order. PROTAMINE 03/20/2017 7:21:00 PM 50 mg Anesthesia, LABORER DRIVER As per physicians laura bal order 50 mg PROTAMINE given in lab by Anesthesia, LABORER DRIVER via Peripheral IV. Ordered by Cherelle Miranda. Reaso n: As per physicians verbal order. Medication (Drip) Medication Time Given Dosage/Unit Concentration/Unit Diluent (ml) Solution ISUPREL 03/20/2017 5:58:52 PM 1 mcg/min 1 mg 250 NaCl .9 1 mcg/min ISUPREL given in lab by Anesthesia, LABORER DRIVER via Peripheral IV. Pump/Drip Flow = 15 ml/hr using NaCl .9 with a concentration of 1 mg in 250 ml. Ordered by Cherelle Miranda. Reason: As per physicians verbal order. ISUPREL 03/20/2017 6:59:14 PM 1 mcg/min 1 mg 250 NaCl .9 1 mcg/min ISUPREL given in lab by Anesthesia, LABORER DRIVER via Peripheral IV. Pump/Drip Flow = 15 ml/hr using NaCl .9 with a concentration of 1 mg in 250 ml. Ordered by Cherelle Miranda. Reason: As per physicians verbal order. Initial Case Assessment Cardiovascular HR Rhythm NIBP Chest Pain 89 sr 132/84 0 Edema Present Skin color Skin None Normal Warm Dry Circulatory - Right Pulses Dorsalis Pedis 1 Scale (0,1,2,3,4,d) Circulatory - Left Pulses Dorsalis Pedis 1 Scale (0,1,2,3,4,d) Circulatory - Lower Extremities Color Lower Right Color Lower Left Normal Normal Neurological State Oriented to time-place- Alert Moves all extremities person Respiration - General Respiration Rate SpO2 (%) (B/min) 20 100 Final Case Assessment Cardiovascular HR Rhythm NIBP 80 sr 106/74 Edema Present Skin color Skin None Normal Warm Dry Circulatory - Right Pulses Dorsalis Pedis 1 Scale (0,1,2,3,4,d) Circulatory - Left Pulses Dorsalis Pedis 1 Scale (0,1,2,3,4,d) Circulatory - Lower Extremities Color Lower Right Color Lower Left Normal Normal Neurological State Oriented to time-place- Lethargic Moves all extremities person Respiration - General Respiration Rate SpO2 (%) (B/min) 16 0 Chronological Log Time Study Chronological Log 16:38:12 Patient arrived via Bed. 16:39:18 Patient Name, D.O.B, / Armband Verified By R.N. 16:39:18 Consent signed by the physician and the patient and verified by the Long Term Acute Care Registered Nurse staff. 16:39:20 Pre-op and post- op instructions given; patient acknowledges understanding of instructions. 16:39:32 Verbal Stimulation=2 Physical Stimulation=2 Airway=2 Respiration=2 TOTAL=8. (0=absent, 1=li mited, 2=present) 16:39:48 Anesthesia at bedside. Assumes care of patient. 16:39:50 Presedation assessment performed by Long Term Acute Care Registered Nurse RN. 16:39:51 Patient has been NPO for More than 6Hrs. 16:45:00 MD arrived. 16:47:56 Skin Breakdown- none per pt 16:48:05 Patient Warmer Placed on the Table. 16:48:07 Disposable Defibrillator Pads Placed On Patient. 16:48:07 Geo Prominences Protected 16:48:09 A # 20 IV was noted in the Antecubital (left). Grade = 0 0.9ns kvo 16:48:09 A # 20 IV was noted in the Antecubital (right). Grade = 0 0.9ns kvo 16:48:12 History and physical on the chart or being dictated. Assessment: Initial Case, HR=89 BPM, Rhythm=sr, SNVM=927/84 mmhg, Chest Pain=0, Edema=None, Col or=Normal, Skin = Warm, Dry Right Pulses: Oscar Ped=1 Left Pulses: Oscar Ped=1 16:48:15 Lower Right Extremities: Color=Normal Lower Left Extremities: Color=Normal Neurological: State=Alert, Ox3, HANNA Respiration: Resp=20 B/min, BlW7=892 % 16:52:45 Table restraints applied according to hospital policy 16:52:52 Bilateral groins prepped with 2% chlorhexidine, and draped after a 3 minute waiting time. 16:58:59 Reference ECG taken Time Out. Correct patient, procedure, procedure equipment, site and side verified with physicia n present. Time 17:07:00 concurred by MD, individual staff and LABORER DRIVER. Time Out #2 - Consents verified, patient in correct position, all results are labled and displa yed, safety precautions 17:07:18 taken, antibiotics administered. Time out concurred by MD, individual staff and LABORER DRIVER in procedu re 17:07:32 Case Start 17:08:07 20 mL 1% XYLOCAINE given in lab by Cherelle Miranda in Right neck via Subcutaneous. 17:09:56 Vascular access was obtained in the Jugular Vein (right). A SHEATH, EPS, FR7 FAST CATH FR 7 was advanced into the Jugular Vein (right) using the Modified Seldinger 17:11:16 technique. A CATHETER, DECAPOLAR CSL RESPONSE FR 6 was advanced vis Jugular Vein (right) and placed in the CS. Placement 17:15:29 was visually confirmed under fluoroscopy. 17:22:00 20 mL 1% XYLOCAINE given in lab by Cherelle Miranda in Right Groin via Subcutaneous. 17:22:34 Vascular access was obtained in the Fem Vein (right). 17:22:36 Vascular access was obtained in the Fem Vein (right). 17:22:43 Vascular access was obtained in the Fem Vein (right). 17:25:00 A SHEATH, EPS, FR7 FAST CATH FR 7 was advanced into the Fem Vein (right) using the Modified Seldinger technique. 17:27:32 A SHEATH, EPS, FR7 FAST CATH FR 7 was advanced into the Fem Vein (right) using the Modified Seldinger technique. 17:27:36 A SHEATH, EPS, FR8 FAST CATH FR 8 was advanced into the Fem Vein (right) using the Modified Seldinger technique. 17:28:02 Vascular access was obtained in the Fem Art (right). A SHEATH, FR4.5 PRELUDE 11CM FR 4.5 was advanced into the Fem Art (right) using the Modified Se tamez technique. 17:28:21 0.9ns pressure bag connected. A CATHETER, JSN, QUAD FR 5 was advanced vis Fem Vein (right) and placed in the RVA. Placement w as visually 17:32:58 confirmed under fluoroscopy. A CATHETER, DEFLECTABLE, 1MM, D TYPE OCTA FR 7 was advanced vis Fem Vein (right) and placed in the HIS. 17:36:44 Placement was visually confirmed under fluoroscopy. A CATHETER, DEFLECTABLE, 1MM, D TYPE HEX FR 6 was advanced vis Fem Vein (right) and placed in t he HRA. 17:38:00 Placement was visually confirmed under fluoroscopy. 17:39:00 EPS in progress. 1 mcg/min ISUPREL given in lab by Anesthesia, LABORER DRIVER via Peripheral IV. Pump/Drip Flow = 15 ml/hr using NaCl .9 with 17:58:52 a concentration of 1 mg in 250 ml. Ordered by Cherelle Miranda. Reason: As per physicians verbal order. 18:11:48 Isuprel off A SHEATH, EPS, FR7 FAST CATH FR 7 was exchanged in the Fem Art (right). This was necessary in o rder for catheter 18:19:10 support. 5000 units HEPARIN given in lab by Anesthesia, LABORER DRIVER via Peripheral IV. Ordered by Alexandria Miranda. Reason: As per 18:22:08 physicians verbal order. 18:26:00 Activated Clotting Time Drawn A CATHETER, FR7 BLAZER II FR7 was advanced vis Fem Art (right) and placed in the LV. Placement was visually 18:30:32 confirmed under fluoroscopy. 18:31:00 ACT (Normal Range 90-180) = 257 2000 units HEPARIN given in lab by Anesthesia, LABORER DRIVER via Peripheral IV. Ordered by Alexandria Miranda Reason: As per 18:31:22 physicians verbal order. 18:34:52 RF Ablation of the LV with a CATHETER, FR7 BLAZER II FR7. 18:42:37 Incremental ablation in progress. 18:45:20 Activated Clotting Time Drawn 18:50:46 ACT (Normal Range 90-180) = 272 1000 units HEPARIN given in lab by Anesthesia, LABORER DRIVER via Peripheral IV. Ordered by Alexandria Miranda. Reason: As per 18:51:05 physicians verbal order. 18:51:59 Ablation Catheter was removed 18:54:12 EPS continues 1 mcg/min ISUPREL given in lab by Anesthesia, LABORER DRIVER via Peripheral IV. Pump/Drip Flow = 15 ml/hr using NaCl .9 with 18:59:14 a concentration of 1 mg in 250 ml. Ordered by Cherelle Miranda. Reason: As per physicians verbal order. 19:08:47 Isuprel off 19:11:00 Catheter(s) removed without difficulty 19:19:43 An injection in the Fem Art (right) was made through the SHEATH, FR4.5 PRELUDE 11CM FR 4.5. 19:19:58 Arterial Sheath removed; Angioseal pressure applied to access site. 19:20:00 ANGIOSEAL FR8 FR 8 placement in the Fem Art (right) 50 mg PROTAMINE given in lab by Anesthesia, LABORER DRIVER via Peripheral IV. Ordered by Cherelle Miranda. Reason: As per 19:21:00 physicians verbal order. 19:26:48 Activated Clotting Time Drawn 19:27:25 Ablation procedure performed: SVT. 19:27:33 EP Procedure was performed. 19:27:41 CICU called. Spoke to sarah 19:29:09 Bedside Report will be given. 19:29:37 ACT (Normal Range 90-180) = 131 19:30:23 Right fem vein Sheaths removed; pressure applied to access sites by TF for 10 min. 19:31:42 Right jugular sheath removed; pressure applied to access site by DB for 5 min. 19:43:29 Case End 19:43:41 Sterile dressing applied to site 19:43:42 No case complications noted. 19:43:42 Cine recording checked. 19:44:07 Defibrillator and ground pads removed. Skin intact. Assessment: Final Case, HR=80 BPM, Rhythm=sr, UUTW=572/74 mmhg, Edema=None, Color=Normal, Skin = Warm, Dry Right Pulses: Oscar Ped=1 Left Pulses: Oscar Ped=1 19:44:36 Lower Right Extremities: Color=Normal Lower Left Extremities: Color=Normal Neurological: State=Lethargic, Ox3, HANNA Respiration: Resp=16 B/min, SpO2=0 % 19:49:09 [facility] - Contrast Media Used In Study Contrast Total Opened (mL) Total Used (mL) Total Wasted (mL) Omnipaque 0 0 0 End Study - Maximum Contrast Load Max Contrast Load (mL) 349.0 End Study - Radiation Exposure Fluoro Time (minutes) 8.6 End Study - Patient Disposition Complications Transferred To Interventional Outcome No Telemetry Bed successful
[2017-03-20] MEDS ORDERED: ASPIRIN 325 MG TAB ONE (19:50)
[2017-03-20 20:00] VITALS: BP 121/71; PULSE 78; PULSE 82; RESP 20; TEMP 97.7; O2SAT 100
--- NOTE | 2017-03-20 20:44 | MR ---
cc: CRYSTAL BARONE DATE: 03/20/2017. INDICATIONS FOR THE PROCEDURE: Paroxysmal supraventricular tachycardia with severe symptoms. PROCEDURE PERFORMED: 1. Comprehensive electrophysiology study with right atrial and right ventricular pacing and sensing. 2. Coronary sinus cannulation with coronary sinus pacing and sensing. 3. IV isoproterenol administration for tachycardia induction. 4. Radiofrequency ablation of supraventricular tachycardia. ACCESS SITE: Right internal jugular vein using ultrasound guidance, right femoral artery, right femoral vein using ultrasound guidance. EQUIPMENT USED: Decapolar catheter in the coronary sinus, quadripolar catheter in the right ventricular apex, Octapolar catheter in the His bundle region and hexapolar catheter in the high right atrium, two 4-mm ablation catheters using retrograde aortic approach. COMPLICATIONS: None. ESTIMATED BLOOD LOSS: Less than 10 mL. METHOD OF HEMOSTASIS: Manual compression. RESULTS: 1. Baseline EKG showed normal sinus rhythm, normal axis and intervals, short P-R interval. 2. Baseline intervals (milliseconds): RR 1242, ID 132, QRS 72, QT 432, QTC 388, AH 50, HV 40. 3. Right atrial programmed electrical stimulation: Programmed stimulation was performed at baseline and on isoproterenol. RVRP at baseline was: 300 / 260 / 230. 500 / 340 / 370 (tachycardia induced). RA/RP AVN baseline 800 / 430. 4. Coronary sinus stimulation: Coronary sinus stimulation was performed at baseline. Supraventricular tachycardia was induced. 5. Right ventricular programmed stimulation was performed at baseline. RV/RP AVN 700 / 440. RV decremental pacing resulted in easy induction of the supraventricular tachycardia. RV/RP also resulted in easy induction of tachycardia. Tachycardia was also induced on IV isoproterenol. 6. Post ablation RV decremental pacing retrograde Wenckebach at 560 milliseconds. RV/RP AVN 300 / 550 / 580. RA/RP AVN 300 / 280 / 310 on isoproternol. RA/RP 300 / 200 / 230. No arrhythmias induced. 7. Arrhythmia was induced AVRT cycle length was 260 milliseconds and 350 milliseconds. Induction RV and RA programmed electrical stimulation duration sustained termination RA burst pacing morphology / axis neurocomplex / normal axis, symptoms, hypotension and palpitations. 8. Radiofrequency ablation electrophysiology study revealed easily inducible AVRT with less lateral accessory pathway conducting in retrograde direction only. Ablation was performed using the retrograde transaortic approach. At the site of this ablation, pathway function disappeared within 10 seconds and there was no evidence of pathway function at the end of the study twenty minutes after the ablation was finished. DIAGNOSIS: 1. 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 2. Successful ablation of the left lateral accessory pathway. DISPOSITION: Ms. Scruggs will be monitored on telemetry after the procedure. Will continue aspirin for at least 6 weeks. I will see her back for follow up in our office within four weeks. She will then see Dr. Ponce, her primary advance agent, for long-term follow up. MD JONATHAN Brar/MATTHEW /7:27 PM /8:24 PM
[2017-03-20 21:00] VITALS: PULSE 84
[2017-03-20 22:00] VITALS: PULSE 89
[2017-03-20 23:00] VITALS: PULSE 72
[2017-03-21] VITALS (9 sets, daily range): BP systolic 94–109; BP diastolic 56–72; PULSE 54–108; RESP 18–20; TEMP 98–98.8; O2SAT 99–100
--- NOTE | 2017-03-21 05:24 | EKG ---
Date Performed: 03/20/2017 Time Performed: 10:52:56 PTAGE: 41 years EKG: Sinus rhythm with frequent PVCs. Septal T wave changes are nonspecific Abnormal ECG PREVIOUS TRACING : 10/11/2016 21.14 DOCTOR: Antonio Corbett Interpretating Date/Time 03/21/2017 05:15:37
--- NOTE | 2017-03-21 11:37 | PD.CARD.PN ---
Subjective Subjective Remarks No CP or SOB, no arrhythmias Objective Medications Administered Medications Medications (Trade) Dose Ordered Sig/Kallie Route PRN Reason Start Time Stop Time Status Last Admin Dose Admin Aspirin (Aspirin) 325 mg DAILY PO 03/20/17 19:45 03/21/17 08:17 Vital Signs / I&O Vital Signs Date Time Temp Pulse Resp B/P (MAP) Pulse Ox O2 Delivery O2 Flow Rate FiO2 03/21/17 07:00 98.6 70 18 94/60 (71) 99 03/21/17 07:00 78 03/21/17 06:00 55 03/21/17 05:00 58 03/21/17 04:00 98.8 56 20 94/56 (69) 100 03/21/17 04:00 54 03/21/17 03:00 58 03/21/17 02:00 61 03/21/17 01:00 65 03/21/17 00:00 98.6 61 18 109/72 (84) 100 03/21/17 00:00 77 03/20/17 23:00 72 03/20/17 22:00 89 03/20/17 21:00 84 03/20/17 20:00 97.7 78 20 121/71 (88) 100 03/20/17 20:00 82 I/O 03/20/17 03/20/17 03/20/17 03/21/17 03/21/17 03/21/17 06:59 14:59 22:59 06:59 14:59 22:59 Intake Total 240 ml Output Total 300 ml Balance -60 ml Intake Oral 240 ml Output Urine Total 300 ml # Voids 2 # Bowel Movements 0 Physical Exam GENERAL: IN NAD SKIN: Warm and dry. HEAD: Normocephalic. EYES: No scleral icterus. No injection or drainage. NECK: Supple, trachea midline. No JVD or lymphadenopathy. CARDIOVASCULAR: Regular rate and rhythm without murmurs, gallops, or rubs. RESPIRATORY: Breath sounds equal bilaterally. No accessory muscle use. GASTROINTESTINAL: Abdomen soft, non-tender, nondistended. MUSCULOSKELETAL: No cyanosis, or edema. R neck and R groin sites stable, no hematoma. 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 Access sites stable. Tele w no arrhythmias. Continue EC ASA 325 mg daily for 6 weeks. DC home. Will schedule outpt f/u. Cherelle Miranda MD Mar 21, 2017 11:37
== END 2017-03-21 12:35 | disposition home or self-care (01) ==
LOC: HDOC 09:54 → HDIC 09:55 → HCIS 20:13 → HDOC 03-21 12:35
PROVIDERS: ATTEND Internal Medicine Interventional Cardiology
DX: I47.1 Supraventricular tachycardia (principal); I45.6 Pre-excitation syndrome; Z86.79 Personal history of other diseases of the circulatory system
CPT/HCPCS: 00537; 80048; 84702; 85002; 85025; 85610; 85730; 93005; 93613; 93623; 93653; C1730; C1732; C2630; J1644; J2720; J7050; Q9967